=== PATIENT | female | born 1975 | race Caucasian/White ===

== ENCOUNTER 2017-01-10 09:06 | Observation (INO) | payer BC ==
[2017-01-10] VITALS (11 sets, daily range): BP systolic 74–102; BP diastolic 44–58; PULSE 75–105; RESP 16–22; TEMP 97.7–98.4; O2SAT 97–100
[~2017-01-10] VITALS: Ht 162.6 cm; Wt 84.2 kg
[2017-01-10] MEDS ORDERED: SODIUM CHLOR 0.9% 1000 ML INJ 1,000 ML IV SCH (09:39)
[2017-01-10] MEDS ORDERED: SODIUM CHLORIDE 0.9% FLUSH 10 ML FLUSH IV FLUSH PRN ×2 (09:45→14:00)
--- NOTE | 2017-01-10 09:58 | PD ---
HPI Chief Complaint: Abdominal Pain Time Seen by Provider: 09:41 Travel History International Travel<30 days: No Contact w/Intl Traveler<30days: No Traveled to known affect area: No History of Present Illness HPI Patient is a [id number] who presents to ER with c/o of RLQ abdominal pain. Patient reports that this pain woke her up from sleep around 7 AM this morning. Patient reports that she is , reports that she thinks that she is about 6-8 weeks this time, she is having atypical menstrual cycles as she is currently breast-feeding her [id number]-[id number] child. Patient reports that she has had 2 prior pregnancies in the past, reports that they were both born via by Dr. Sim in [place]. Patient is here for vacation. Patient reports that she has been feeling nauseous with her symptoms, reports chills. PFSH Past Medical History Respiratory: Yes (Asthma) ?: LMP: unable to recall : 3 Para: 2 Past Surgical History Section: Yes Social History Alcohol Use: Yes Tobacco Use: No Substance Use: No Allergies-Medications (Allergen,Severity, Reaction): Coded Allergies: No Known Allergies (Unverified , 01/10/17) Review of Systems General / Constitutional: No: Fever Eyes: No: Visual changes HENT: No: Headaches Cardiovascular: No: Chest Pain or Discomfort Respiratory: No: Shortness of Breath Gastrointestinal: Positive: Nausea, Abdominal Pain Genitourinary: No: Dysuria Musculoskeletal: No: Pain Skin: No Rash Neurologic: No: Weakness Psychiatric: No: Depression Endocrine: No: Polydipsia Hematologic/Lymphatic: No: Easy Bruising Physical Exam Narrative GENERAL: Severe distress SKIN: Focused skin assessment warm/dry. HEAD: Atraumatic. Normocephalic. EYES: Pupils equal and round. No scleral icterus. No injection or drainage. ENT: No nasal bleeding or discharge. Mucous membranes pink and moist. NECK: Trachea midline. No JVD. CARDIOVASCULAR: Regular rate and rhythm. No murmur appreciated. RESPIRATORY: No accessory muscle use. Clear to auscultation. Breath sounds equal bilaterally. GASTROINTESTINAL: Abdomen soft, patient with right lower quadrant tenderness with guarding on exam MUSCULOSKELETAL: No obvious deformities. No clubbing. No cyanosis. No edema. NEUROLOGICAL: Awake and alert. No obvious cranial nerve deficits. Motor grossly within normal limits. Normal speech. PSYCHIATRIC: Appropriate mood and affect; insight and judgment normal. Data Data Last Documented VS Vital Signs Date Time Temp Pulse Resp B/P Pulse Ox O2 Delivery O2 Flow Rate FiO2 01/10/17 11:48 84 16 75/44 100 Room Air 01/10/17 09:18 97.7 Orders Beta Hcg (Quant/Titer) (01/10/17 09:39) Complete Blood Count With Diff (01/10/17 09:39) Comprehensive Metabolic Panel (01/10/17 09:39) Lipase (01/10/17 09:39) Prothrombin Time / Inr (Pt) (01/10/17 09:39) Act Partial Throm Time (Ptt) (01/10/17 09:39) Urinalysis - C+S If Indicated (01/10/17 09:39) Iv Access Insert/Monitor (01/10/17 09:39) Ecg Monitoring (01/10/17 09:39) NPO (01/10/17 09:39) Sodium Chlor 0.9% 1000 Ml Inj (Ns 1000 M (01/10/17 09:39) Sodium Chloride 0.9% Flush (Ns Flush) (01/10/17 09:45) Ed Urine Pregnancytest Poc (01/10/17 09:39) Cath For Specimen (01/10/17 09:39) Type And Screen (01/10/17 09:50) Us Pelvis (Ques Pr/Ect)W Trans (01/10/17 ) Sodium Chlor 0.9% 1000 Ml Inj (Ns 1000 M (01/10/17 10:00) Red Blood Cells (Rbc) (01/10/17 11:48) Blood Product Administration .UPON TRANSFUSION (01/10/17 11:48) Sodium Chlor 0.9% 250 Ml Inj (Ns 250 Ml (01/10/17 12:00) Admit Order (Ed Use Only) (01/10/17 11:53) Sodium Chlor 0.9% 1000 Ml Inj (Ns 1000 M (01/10/17 12:00) Labs Laboratory Tests Test 01/10/17 01/10/17 01/10/17 09:40 09:50 11:48 White Blood Count 10.0 TH/MM3 Red Blood Count 3.97 MIL/MM3 Hemoglobin 11.5 GM/DL Hematocrit 33.2 % Mean Corpuscular Volume 83.6 FL Mean Corpuscular Hemoglobin 29.0 PG Mean Corpuscular Hemoglobin 34.7 % Concent Red Cell Distribution Width 13.0 % Platelet Count 249 TH/MM3 Mean Platelet Volume 10.2 FL Neutrophils (%) (Auto) 77.4 % Lymphocytes (%) (Auto) 17.2 % Monocytes (%) (Auto) 3.9 % Eosinophils (%) (Auto) 1.1 % Basophils (%) (Auto) 0.4 % Neutrophils # (Auto) 7.8 TH/MM3 Lymphocytes # (Auto) 1.7 TH/MM3 Monocytes # (Auto) 0.4 TH/MM3 Eosinophils # (Auto) 0.1 TH/MM3 Basophils # (Auto) 0.0 TH/MM3 CBC Comment DIFF FINAL Differential Comment Prothrombin Time 10.7 SEC Prothromb Time International 1.0 RATIO Ratio Activated Partial 21.7 SEC Thromboplast Time Sodium Level 139 MEQ/L Potassium Level 3.7 MEQ/L Chloride Level 107 MEQ/L Carbon Dioxide Level 25.0 MEQ/L Anion Gap 7 MEQ/L Blood Urea Nitrogen 11 MG/DL Creatinine 0.67 MG/DL Estimat Glomerular Filtration 97 ML/MIN Rate Random Glucose 108 MG/DL Calcium Level 8.1 MG/DL Total Bilirubin 0.3 MG/DL Aspartate Amino Transf 9 U/L (AST/SGOT) Alanine Aminotransferase 27 U/L (ALT/SGPT) Alkaline Phosphatase 41 U/L Total Protein 6.5 GM/DL Albumin 3.3 GM/DL Lipase 101 U/L Human Chorionic Gonadotropin, 2927 MIU/ML Quant Blood Type B NEGATIVE Antibody Screen NEGATIVE Blood Bank Comment Urine Color YELLOW Urine Turbidity CLEAR Urine pH 5.5 Urine Specific Haskins 1.017 Urine Protein NEG mg/dL Urine Glucose (UA) NEG mg/dL Urine Ketones NEG mg/dL Urine Occult Blood NEG Urine Nitrite NEG Urine Bilirubin NEG Urine Urobilinogen LESS THAN 2.0 MG/DL Urine Leukocyte Esterase NEG Urine WBC 0-2 /hpf Urine Squamous Epithelial 0-5 /hpf Cells Microscopic Urinalysis Comment CATH-CULT NOT IND Crossmatch Leukocyte-Reduced Red Blood Cells MDM Medical Decision Making Medical Screen Exam Complete: Yes Emergency Medical Condition: Yes Medical Record Reviewed: Yes Interpretation(s) Vital Signs Date Time Temp Pulse Resp B/P Pulse Ox O2 Delivery O2 Flow Rate FiO2 01/10/17 09:18 97.7 87 16 87/54 100 Differential Diagnosis Ectopic , appendicitis, colitis, gastroenteritis Narrative Course 41-year-old female who presents to emergency room with complaints of severe right lower quadrant pain which woke her from sleep this morning. Reports that she thinks that she is about 6-8 weeks , she has not seen an MANAGER QUALITY about this as she recently discovered that she was . Patient has severe right lower quadrant pain with rebound and guarding on exam. She is hypotensive with a blood pressure of 87/54. I am concerned the patient may have ruptured ectopic , a stat ultrasound was ordered to bedside. Patient was typed and screened, labs and IVF ordered US tech at bedside HCG quant 2927, patient with continued pain, pending pelvic US, MRI abdomen ordered to evaluate for possible appendicitis case reviewed with Dr. Solano, patient with concern for ruptured ectopic as she has complex free fluid in the abdomen at this time. call made to dr. torres Last Impressions Pelvis Ultrasound 01/10/17 0000 Signed Impressions: Service Date/Time: Tuesday, January 10, 2017 09:59 - CONCLUSION: Findings are suspicious for ruptured . Moderate amount of heterogeneous fluid is seen in the pelvis, likely representing hemorrhage. Cystic area in the uterus is nonspecific and may represent a pseudo-gestational sac or abnormal gestational sac. Right ovary is poorly defined. Findings were discussed with Dr. Mas. Adrien Solano MD Patient with concerns for ruptured ectopic with hemoperitoneum. Case reviewed with Dr. Abe howe, plan for OR today. Patient is hypotensive with a systolic blood pressures in the 70s, despite 2 liters of IV fluid. Patient has been typed and screened - 2 units of blood ordered for her as well as another liter of fluids. Reviewed with patient and her today, they're agreeable to surgery today. Patient now normatensive with a SBP in the 130's. I did talk to patient's ob/ consumer insights intern and review case as requested by patient Critical Care Narrative Aggregate critical care time was 60 minutes. Time to perform other separately billable procedures was not included in the critical care time. My time did not include minutes spent treating any other patients simultaneously or on activities that did not directly contribute to the patient's treatment. The services I provided to this patient were to treat and/or prevent clinically significant deterioration that could result in: , decompensation, deterioration I provided critical care services requiring my management, as noted below: Chart data review, documentation time, medication orders and management, vital sign assessments/reviewing monitor data, ordering and reviewing lab tests, ordering and interpreting/reviewing x-rays and diagnostic studies, care of the patient and discussion of the patient with the admitting physicians. Diagnosis Primary Impression: Hemoperitoneum due to rupture of right tubal ectopic Admitting Information Admitting Physician Requests: Admit Mila Mas DO Jan 10, 2017 09:58
[2017-01-10] MEDS ORDERED: SODIUM CHLOR 0.9% 1000 ML INJ 1,000 ML IV ONE ×2 (10:00→12:00)
[2017-01-10 10:07] LABS: AUTOMATED NEUTROPHIL # 7.8 TH/MM3 (1.8-7.7); BASOPHIL % 0.4 % (0.0-2.0); EOSINOPHIL # 0.1 TH/MM3 (0-0.4); EOSINOPHIL % 1.1 % (0.0-4.0); HEMATOCRIT 33.2 % (35.0-46.0); HEMO FLAGS DIFF FINAL; LYMPH % 17.2 % (9.0-44.0); LYMPHOCYTE # 1.7 TH/MM3 (1.0-4.8); MEAN CELL VOLUME 83.6 FL (80.0-100.0); MEAN CORPUSCULAR HGB CONC 34.7 % (32.0-36.0); MONO % 3.9 % (0.0-8.0); NEUT % 77.4 % (16.0-70.0); PLATELET COUNT 249 TH/MM3 (150-450); RED BLOOD COUNT 3.97 MIL/MM3 (4.00-5.30)
[2017-01-10 10:15] LABS: BLOOD, URINE NEG (NEG); GLUCOSE,URINE NEG (NEG); KETONE, URINE NEG (NEG); NITRITE,URINE NEG (NEG); PH, URINE 5.5 (5.0-8.5); URINE COLOR YELLOW (YELLW/STRAW)
[2017-01-10 10:17] LABS: APTT (PATIENT) 21.7 SEC (24.3-30.1); PROTHROMBIN TIME - PATIENT 10.7 SEC (9.8-11.6)
[2017-01-10 10:26] LABS: CULTURE IF INDICATED CATH CULTURE NOT IND; WBC, URINE 0-2 /hpf (0-5)
[2017-01-10 10:27] LABS: COMMENT (UR) CATH-CULT NOT IND; COMMENT2 (UR) CATH-CULT NOT IND; SQUAMOUS EPITHELIAL CELL URINE 0-5 /hpf (0-5)
[2017-01-10 10:37] LABS: ANION GAP 7 MEQ/L (5-15); AST (GOT) 9 U/L (15-37); BLOOD UREA NITROGEN 11 MG/DL (7-18); CHLORIDE 107 MEQ/L (98-107); GLOMERULAR FILTRATION RATE 97 ML/MIN (>89); POTASSIUM 3.7 MEQ/L (3.5-5.1); SODIUM (NA) 139 MEQ/L (136-145)
[2017-01-10 10:53] LABS: ALKALINE PHOSPHATASE 41 U/L (45-117); ALT (GPT) 27 U/L (10-53); BETA HCG QUANT 2927 MIU/ML (0-5); TOTAL BILIRUBIN ADULT 0.3 MG/DL (0.2-1.0)
--- NOTE | 2017-01-10 11:43 | RADRPT ---
EXAM DATE/TIME: 01/10/2017 09:59 [facility] COMPARISON: No previous studies available for comparison. INDICATIONS : Pelvic pain. LAB(S): Beta-hC MEDICAL HISTORY : . SURGICAL HISTORY : section. ENCOUNTER: Initial ACUITY: 1 day PAIN SCORE: 6/10 LOCATION: Bilateral pelvis MEASUREMENTS: UTERUS: 8.0 x 4.9 x 5.3 cm ENDOMETRIAL STRIPE: 20 mm RIGHT OVARY: 3.8 x 2.7 x 2.4 cm LEFT OVARY: 2.6 x 1.8 x 1.8 cm FREE FLUID: Yes bilateral adnexas. FINDINGS: UTERUS: There is a 1.3 x 0.6 x 1.4 cm oval cystic area in the uterine fundus. This finding does not have the definitive characteristics of a gestational sac however. No pole. No yolk sac. RIGHT OVARY: Right ovary is somewhat ill-defined. Heterogeneous mixed echogenicity is seen surrounding the right o vary in the right adnexa. LEFT OVARY: Within normal limits. MISCELLANEOUS: Prominent amount of heterogeneous mixed echogenicity fluid is seen in the cul-de-sac and in the adnex al regions bilaterally. Findings suggest a moderate amount of hemorrhage in the pelvis. CONCLUSION: Findings are suspicious for ruptured . Moderate amount of heterogeneous fluid is seen in the pelvis, likely representing hemorrhage. Cystic area in the uterus is nonspecific and may represent a pseudo-gestational sac or abnormal gestational sac. Right ovary is poorly defined. Findings were dis cussed with Dr. Mas. Adrien Solano MD on January 10, 2017 at 11:34 Board Certified Radiologist. This report was verified electronically.
[2017-01-10] MEDS ORDERED: ePHEDrine/NS 25 MG/5 ML SYR IV ONE (12:00)
[2017-01-10] MEDS ORDERED: KETOROLAC TROMETHAMINE 60 MG/2 ML (IM) VIAL IM ONE (12:00)
[2017-01-10] MEDS ORDERED: PHENYLEPH/NS 1000 MCG/10 ML SYR IV ONE (12:00)
[2017-01-10] MEDS ORDERED: LACTATED RINGER'S 1000 ML INJ 2,000 ML IV ONE (12:00)
[2017-01-10] MEDS ORDERED: NEOSTIGMINE 3 MG/3 ML SYR IV ONE (12:00)
[2017-01-10] MEDS ORDERED: PROPOFOL 200 MG/20 ML AMP IV ONE (12:00)
[2017-01-10] MEDS ORDERED: ONDANSETRON HCL 4 MG/2 ML VIAL IV PUSH ONE (12:00)
[2017-01-10] MEDS ORDERED: SODIUM CHLOR 0.9% 250 ML INJ 250 ML IV ONE (12:00)
[2017-01-10] MEDS ORDERED: fentaNYL CITRATE 250 MCG/5 ML AMP ONE ×2 (12:27→13:02)
[2017-01-10] MEDS ORDERED: fentaNYL CITRATE 250 MCG/5 ML AMP IV PUSH ONE (12:30)
[2017-01-10] MEDS ORDERED: BUPIVACAINE/EPINEPHRINE 0.5% PF 30 ML VIAL ONE (12:48)
[2017-01-10] MEDS ORDERED: MIDAZOLAM HCL 2 MG/2 ML VIAL ONE (13:01)
[2017-01-10] MEDS ORDERED: DICLOFENAC SODIUM 37.5 MG/ML VIAL IV PUSH ONE (13:02)
[2017-01-10] MEDS ORDERED: ceFAZolin INJ 1,000 MG VIAL IV ONE (13:19)
[2017-01-10] MEDS ORDERED: ACETAMINOPHEN 1000 MG/100 ML VIAL IV ONE (13:23)
--- NOTE | 2017-01-10 13:23 | MH ---
cc: LONNY COOK DATE OF ADMISSION: 01/10/2017 ADMITTING DIAGNOSIS: Ruptured ectopic . HISTORY OF PRESENT ILLNESS The patient 41-year-old white female para 2-0-0-2 with uncertain last menstrual period. She had acute onset of severe lower quadrant pain starting this morning and presented to the emergency department hypotensive and in severe discomfort. Her ultrasound shows a uterus with a small 1.3-cm cystic area in the fundus that does not appear to be a normal gestational sac which may be a pseudocyst sac. The right ovary is ill-defined with echogenicity around the right adnexa with extensive free fluid. Since arrival, she has developed shoulder pain. She is now admitted for surgical evaluation for a possible ectopic . PAST MEDICAL HISTORY: Previous x2 MEDICATIONS: Vitamins. ALLERGIES: NONE. TRANSFUSIONS: None. SOCIAL HISTORY: She is . Breast feeding. Alcohol occasional. PHYSICAL EXAMINATION: GENERAL: An ill-appearing white female. VITAL SIGNS: Stable. HEAD, EYES, EARS, NOSE, THROAT: Normal. CHEST: Clear. HEART: Regular rate. ABDOMEN: Tender in the right lower quadrant. EXTREMITIES: Normal. PELVIC EXAM: To be repeated in the operating room. Discussed the findings are compatible with a ruptured ectopic . Would recommend proceeding with immediate laparoscopy, possible laparotomy, possible transfusion. I have explained the procedures, the risks, benefits, and complications and the patient wishes to proceed. MD GUTIERREZ Moreno/RADHA /12:45 PM /1:18 PM
[2017-01-10] MEDS ORDERED: diphenhydrAMINE HCL 25 MG CAP PO PRN (14:00)
[2017-01-10] MEDS ORDERED: ONDANSETRON HCL 4 MG/2 ML VIAL IV PRN (14:00)
[2017-01-10] MEDS ORDERED: ZOLPIDEM TARTRATE 5 MG TAB PO PRN (14:00)
[2017-01-10] MEDS ORDERED: hydrOXYzine PAMOATE 25 MG CAP PO PRN (14:00)
[2017-01-10] MEDS ORDERED: HYDROmorphone HCL PF 1 MG/ML VIAL IV PRN (14:00)
[2017-01-10] MEDS ORDERED: ONDANSETRON ODT 4 MG TAB PO PRN (14:00)
[2017-01-10] MEDS ORDERED: PROMETHAZINE HCL 25 MG TAB PO PRN (14:00)
[2017-01-10] MEDS ORDERED: ONDANSETRON INJ 8 MG in DEXTROSE 5% IN WATER INJ 50 ML IV PRN ×2 (14:30)
[2017-01-10] MEDS ORDERED: DO NOT ADM ANY ANTICOAGULANT DRUGS PRN (14:45)
[2017-01-10] MEDS ORDERED: DOCUSATE SODIUM 100 MG CAP PO SCH (15:00)
[2017-01-10] MEDS: D5-1/2 NS + KCL 20 MEQ INJ 1,000 ML IV SCH ×2 (15:00→20:33)
[2017-01-10] MEDS ORDERED: *morphine SULFATE 8 MG/ML PERIprocedure ONLY ONE (15:11)
[2017-01-10 16:36] LABS: REVIEW FLAG FINAL
[2017-01-10] MEDS: KETOROLAC TROMETHAMINE 30 MG/ML (IVP) VIAL IVP SCH (20:37)
[2017-01-10] MEDS: SODIUM CHLORIDE 0.9% FLUSH 10 ML FLUSH IV FLUSH SCH (20:38)
[2017-01-10] MEDS: ACETAMINOPHEN 1000 MG/100 ML VIAL IV SCH (21:47)
--- NOTE | 2017-01-10 22:35 | MP ---
cc: LONNY COOK DATE OF SURGERY 01/10/2017 ADMISSION DIAGNOSIS Ruptured right ectopic . POSTOPERATIVE DIAGNOSIS Ruptured right ectopic . PROCEDURE Laparoscopy with a partial right salpingectomy. ANESTHESIA General ET SURGEON Lonny Cook MD BLOOD LOSS About 600 mL pre surgery. Less than 5 for the surgery. FLUID REPLACEMENT 1 liter. OBJECTIVE FINDINGS Following induction of adequate general endotracheal anesthesia, the patient was prepped and draped supine on the operating table in the dorsolithotomy position in sterile fashion with the bladder being drained by Nina catheterization. Umbilicus injected with 3 mL of 0.5% Marcaine with epinephrine and a 5 port placed. Laparoscope inserted with copious blood seen. Left lower quadrant injected with 3 mL of Marcaine and 0.5% epinephrine. A 12 port was placed and a second right in the right lower quadrant. The suction retort engineer was used to evacuate copious amounts of blood. I could then seen the rupture in the right ectopic isthmic region. Harmonic scalpel was used to excise the ruptured tissue and extract it in a bag. As much of the old blood as possible was irrigated out. There was no bleeding. The operative sites were coated with Steve. The large port removed and the fascia sutured with a Tashi-Sullivan device using two 2-0 Vicryl and the skin with 3-0 Monocryl. Inspection revealed good closure with no entrapment of tissue. No bleeding was seen. Scope was withdrawn, the gas allowed to escape. Small ports removed and sutured with 3-0 Monocryl. Dermabond applied. All counts correct and the patient was awakened and taken to the recovery room in good condition. MD GUTIERREZ Moreno/KK /2:03 PM /10:21 PM JOSE MANUEL
[2017-01-11] VITALS (9 sets, daily range): BP systolic 96–123; BP diastolic 52–60; PULSE 80–100; RESP 18; TEMP 97.9–99.3; O2SAT 94–99
[2017-01-11] MEDS: KETOROLAC TROMETHAMINE 30 MG/ML (IVP) VIAL IVP SCH ×4 (02:10→20:48)
[2017-01-11] MEDS: D5-1/2 NS + KCL 20 MEQ INJ 1,000 ML IV SCH ×3 (05:12→15:51)
[2017-01-11] MEDS: ACETAMINOPHEN 1000 MG/100 ML VIAL IV SCH ×3 (05:12→20:47)
[2017-01-11 06:48] LABS: AUTOMATED NEUTROPHIL # 7.2 TH/MM3 (1.8-7.7); BASOPHIL % 0.1 % (0.0-2.0); EOSINOPHIL % 0.2 % (0.0-4.0); HEMATOCRIT 26.2 % (35.0-46.0); HEMO FLAGS DIFF FINAL; LYMPH % 18.7 % (9.0-44.0); LYMPHOCYTE # 1.8 TH/MM3 (1.0-4.8); MEAN CELL VOLUME 84.8 FL (80.0-100.0); MEAN CORPUSCULAR HEMOGLOBIN 30.2 PG (27.0-34.0); MEAN CORPUSCULAR HGB CONC 35.6 % (32.0-36.0); MONO % 6.8 % (0.0-8.0); NEUT % 74.2 % (16.0-70.0); PLATELET COUNT 184 TH/MM3 (150-450); RED BLOOD COUNT 3.08 MIL/MM3 (4.00-5.30); RED CELL DISTRIBUTION WIDTH 13.3 % (11.6-17.2); WHITE BLOOD COUNT 9.7 TH/MM3 (4.0-11.0)
[2017-01-11 07:18] LABS: BICARBONATE 23.7 MEQ/L (21.0-32.0); POTASSIUM 3.3 MEQ/L (3.5-5.1)
[2017-01-11 07:33] LABS: CALCIUM-PROTEIN CORRECTED 7.7 MG/DL (8.5-10.1)
[2017-01-11] MEDS: DOCUSATE SODIUM 100 MG CAP PO SCH ×2 (07:52→20:46)
[2017-01-11] MEDS: SIMETHICONE 80 MG CHEWABLE TAB PO PRN ×2 (08:55→20:46)
[2017-01-11] MEDS: SODIUM CHLORIDE 0.9% FLUSH 10 ML FLUSH IV FLUSH SCH ×2 (09:00→20:48)
[2017-01-12 00:45] VITALS: BP 102/61; PULSE 98; RESP 16; TEMP 97.5; O2SAT 98
[2017-01-12] MEDS: KETOROLAC TROMETHAMINE 30 MG/ML (IVP) VIAL IVP SCH ×2 (02:23→09:06)
[2017-01-12 05:30] VITALS: BP 120/64; PULSE 94; RESP 16; TEMP 98.2; O2SAT 97
[2017-01-12] MEDS: ACETAMINOPHEN 1000 MG/100 ML VIAL IV SCH (05:38)
[2017-01-12 07:08] LABS: AUTOMATED NEUTROPHIL # 3.2 TH/MM3 (1.8-7.7); BASOPHIL % 0.3 % (0.0-2.0); EOSINOPHIL # 0.1 TH/MM3 (0-0.4); EOSINOPHIL % 2.6 % (0.0-4.0); HEMATOCRIT 25.4 % (35.0-46.0); HEMO FLAGS DIFF FINAL; LYMPH % 30.8 % (9.0-44.0); LYMPHOCYTE # 1.7 TH/MM3 (1.0-4.8); MEAN CELL VOLUME 85.8 FL (80.0-100.0); MEAN CORPUSCULAR HEMOGLOBIN 29.5 PG (27.0-34.0); MEAN CORPUSCULAR HGB CONC 34.4 % (32.0-36.0); MONO % 9.5 % (0.0-8.0); NEUT % 56.8 % (16.0-70.0); PLATELET COUNT 163 TH/MM3 (150-450); RED BLOOD COUNT 2.96 MIL/MM3 (4.00-5.30); RED CELL DISTRIBUTION WIDTH 13.8 % (11.6-17.2); WHITE BLOOD COUNT 5.6 TH/MM3 (4.0-11.0)
[2017-01-12 08:00] VITALS: BP 114/55; PULSE 99; RESP 20; TEMP 98.1; O2SAT 98
--- NOTE | 2017-01-12 08:15 | HHI.DCPOC ---
Discharge Care Plan Report Symptoms to Your Doctor -Temperature above 100.5 degrees -Redness, of incision or excessive or foul smelling drainage -Unusual pain or calf pain -Increased vaginal bleeding -Painful or difficulty urinating -Feelings of extreme sadness or anxiety after 2 weeks Goals to Promote Your Health * To prevent worsening of your condition and complications * To maintain your health at the optimal level Directions to Meet Your Goals Take your medications as prescribed Follow your dietary instruction Follow activity as directed Ensure plenty of rest for recovery Drink fluids for hydration Keep your appointments as scheduled Take your immunizations and boosters as scheduled If your symptoms worsen call your PCP, if no PCP go to Urgent Care Center or Emergency Room Smoking is Dangerous to Your Health. Avoid second hand smoke Call the 24-hour crisis hotline for domestic abuse at Abe Finley MD Jan 12, 2017 08:15
[2017-01-12] MEDS: DOCUSATE SODIUM 100 MG CAP PO SCH (09:00)
[2017-01-12] MEDS: SODIUM CHLORIDE 0.9% FLUSH 10 ML FLUSH IV FLUSH SCH (09:08)
--- NOTE | 2017-01-16 06:10 | MD ---
cc: LONNY COOK. ADMISSION DATE: 01/10/2017 DISCHARGE DATE: 01/12/2017 DATE OF ADMISSION 01/10/2017 DATE OF DISCHARGE 01/12/2017 ADMISSION DIAGNOSIS Ruptured ectopic with anemia. DISCHARGE DIAGNOSIS Ruptured ectopic with anemia. PROCEDURE: Procedure is a laparoscopy with partial right salpingectomy on 01/10/2017. HISTORY OF PRESENT ILLNESS 41-year-old white female para 2-0-2 developed acute onset of right lower quadrant pain at 07:00 a.m. on the morning of admission, reported to the emergency department, was found to be hypotensive anemic. An ultrasound consistent with a ruptured , probably on the right with copious abdominal free fluid. She was admitted and underwent laparoscopy with partial right salpingectomy, evacuation over 700 cc of old blood from the abdomen. Postop she required 2 units of packed cells and was given RhoGAM 1 ampule due to her Rh negative status. With gradual advancement of diet and activity, she improved. discharged home on 01/12/2017. Hemoglobin at discharged 8.7. She was advised NPV, light activity, no driving. She has a follow up with her doctor in [place]. She was given prescriptions for Percocet 5 mg one to two p.o. q. 4 hours, as needed #40 Zofran ODT 8 mg p.o. 8 hours, #15, refills zero. MD GUTIERREZ Moreno/murray /8:23 AM /6:03 AM [facility] SYSTEM[facility]
== END 2017-01-12 13:11 | disposition home or self-care (01) ==
LOC: NEPC 09:06 → INTOOBSV 11:54 → NEDA 11:54 → HOCA 18:29
PROVIDERS: ADMIT Obstetrics & Gynecology; ATTEND Obstetrics & Gynecology
DX: O00.10 Tubal pregnancy without intrauterine pregnancy (principal); O99.511 Diseases of the respiratory system complicating pregnancy, first trimester; J45.909 Unspecified asthma, uncomplicated; O34.219 Maternal care for unspecified type scar from previous cesarean delivery; O99.011 Anemia complicating pregnancy, first trimester; D64.9 Anemia, unspecified; Z3A.08 8 weeks gestation of pregnancy
CPT/HCPCS: 36430; 59151; 76700; 76817; 80048; 80053; 81001; 83690; 84155; 84702; 84703; 85014; 85018; 85025; 85610; 85730; 86850; 86900; 86901; 86920; 88305; 90384; 94150; 99285; J0131; J0690; J1130; J1885; J2250; J2270; J2370; J2405; J2710; J3010; J3480; J7030; J7120; P9016; P9612; 88302; G0378; J2790